=== PATIENT | female | born 1950 | race Two or more races ===

== ENCOUNTER 2018-09-01 11:18 | Inpatient (IN) | payer SELFPAY ==
[~2018-09-01] VITALS: Ht 154.9 cm; Wt 55.6 kg
[2018-09-01] MEDS ORDERED: LISI1TAB11 PO (11:26)
[2018-09-01 11:43] LABS: GLUCOSE,POINT OF CARE 179 MG/DL (70-110)
[2018-09-01 12:43] LABS: BILIRUBIN,URINE NEGATIVE (NEGATIVE); GLUCOSE, URINE (UA) NEGATIVE (NEGATIVE); KETONES,URINE NEGATIVE (NEGATIVE); LEUKOCYTE ESTERASE ,URINE MODERATE (NEGATIVE); NITRATE,URINE NEGATIVE (NEGATIVE); OCCULT BLOOD,URINE NEGATIVE (NEGATIVE); PH,URINE 6.5 (5.0-8.0); PROTEIN,URINE NEGATIVE (NEGATIVE); UROBILINOGEN,URINE 0.2 mg/dL (<=1.0)
[2018-09-01 12:44] LABS: BASOPHILS % (AUTO) 1.1 % (0.0-2.0); EOSINOPHILS % (AUTO) 1.9 % (1.0-6.0); HEMATOCRIT 42.3 % (36-46); HEMOGLOBIN 14.7 g/dL (12.0-16.0); LYMPHOCYTES # (AUTO) 1.5 K/uL (1.0-4.8); LYMPHOCYTES % (AUTO) 25.6 % (22.0-44.0); MEAN CORPUSCULAR HEMOGLOBIN 29.9 pg (26.0-34.0); MEAN CORPUSCULAR HGB CONC 34.9 G/dL (31.0-37.0); MEAN CORPUSCULAR VOLUME 86 fL (80-100); MONOCYTES # (AUTO) 0.5 K/uL (0.1-1.0); NEUTROPHILS # (AUTO) 3.8 K/uL (1.8-7.7); NEUTROPHILS % (AUTO) 63.4 % (40.0-70.0); PLATELET COUNT (AUTO) 226 K/uL (150-450); RED BLOOD CELL COUNT(AUTO) 4.93 MIL/uL (4.00-5.20); RED CELL DISTRIBUTION WIDTH 13.2 % (11.5-14.5)
[2018-09-01 12:52] LABS: ANION GAP 7 mmol/L (8-16); CALCIUM, TOTAL 9.3 mg/dL (8.8-10.5); CARBON DIOXIDE 27 mmol/L (22-29); CHLORIDE 100 mmol/L (98-107); GLOMERULAR FILTR. RATE CALC > 60 mL/min (>60); GLUCOSE,RANDOM 140 mg/dL (70-110); POTASSIUM 4.2 mmol/L (3.5-5.1); SODIUM SERUM 134 mmol/L (136-145); UREA NITROGEN, BLOOD 16 mg/dL (7-18)
[2018-09-01 12:54] LABS: INR 0.9 (0.9-1.1); PROTHROMBIN TIME 9.7 SEC (9.4-11.6)
[2018-09-01 12:57] LABS: APPEARANCE,URINE HAZY (CLEAR)
[2018-09-01 12:58] LABS: BACTERIA,URINE None Seen /HPF (None Seen); RBC,URINE None Seen /HPF (0-2); SQUAMOUS EPITHELIAL CELL,UR Few /LPF (None Seen)
[2018-09-01 13:08] LABS: B-TYPE NATRIURETIC PEPTIDE 35 pg/mL (0-100)
[2018-09-01 13:16] LABS: ALANINE AMINOTRANSFERASE 29 U/L (12-78); ALBUMIN 3.9 g/dL (3.4-5.0); ALKALINE PHOSPHATASE 112 U/L (46-116); ASPARTATE AMINOTRANSFERASE 25 U/L (15-37); BILIRUBIN,TOTAL 0.4 mg/dL (0.1-1.0); CREATINE KINASE, TOTAL ONLY 85 U/L (26-192); TOTAL PROTEIN, SERUM 8.6 g/dL (6.4-8.2)
[2018-09-01] MEDS ORDERED: ACETAMINOPHEN 325 MG TABLET PO PRN (14:00)
[2018-09-01] MEDS ORDERED: 0.9% SODIUM CHLORIDE 10 ML SYRINGE IVP PRN ×2 (14:00→16:15)
[2018-09-01] MEDS ORDERED: ONDANSETRON HCL 4 MG/2 ML VIAL IVP PRN ×2 (14:00→16:15)
[2018-09-01] MEDS ORDERED: ZOLPIDEM TARTRATE 5 MG TABLET PO PRN (16:15)
[2018-09-01] MEDS: HYDROCHLOROTHIAZIDE 25 MG TABLET PO SCH (17:12)
[2018-09-01 18:52] VITALS: BP 128/74
[2018-09-01] MEDS: ASPIRIN 81 MG EC TABLET PO SCH (19:56)
[2018-09-01] MEDS: LISINOPRIL 20 MG TABLET PO SCH (19:56)
[2018-09-01] MEDS: ENOXAPARIN SODIUM 40 MG/0.4 ML PF SYRINGE SQ SCH (19:57)
[2018-09-01 20:13] VITALS: BP 151/79
[2018-09-01] MEDS: DOCUSATE SODIUM 100 MG CAPSULE PO SCH (21:25)
[2018-09-01] MEDS: METOPROLOL TARTRATE 25 MG TABLET PO SCH (21:25)
[2018-09-01 23:41] VITALS: BP 113/53
[2018-09-02 05:08] VITALS: BP 116/57
[2018-09-02 06:14] LABS: BASOPHILS % (AUTO) 1.1 % (0.0-2.0); EOSINOPHILS % (AUTO) 3.7 % (1.0-6.0); HEMOGLOBIN 13.9 g/dL (12.0-16.0); LYMPHOCYTES # (AUTO) 2.1 K/uL (1.0-4.8); MEAN CORPUSCULAR HEMOGLOBIN 29.6 pg (26.0-34.0); MEAN CORPUSCULAR HGB CONC 34.8 G/dL (31.0-37.0); MEAN CORPUSCULAR VOLUME 85 fL (80-100); MONOCYTES # (AUTO) 0.6 K/uL (0.1-1.0); MONOCYTES % (AUTO) 9.5 % (2.0-9.0); NEUTROPHILS # (AUTO) 3.2 K/uL (1.8-7.7); NEUTROPHILS % (AUTO) 51.7 % (40.0-70.0); PLATELET COUNT (AUTO) 222 K/uL (150-450); RED CELL DISTRIBUTION WIDTH 13.3 % (11.5-14.5)
[2018-09-02 06:30] LABS: ALBUMIN 3.3 g/dL (3.4-5.0); BILIRUBIN,TOTAL 0.5 mg/dL (0.1-1.0); CALCIUM, TOTAL 8.9 mg/dL (8.8-10.5); CREATININE 0.94 mg/dL (0.60-1.30); POTASSIUM 4.4 mmol/L (3.5-5.1); TOTAL PROTEIN, SERUM 7.1 g/dL (6.4-8.2)
[2018-09-02 07:52] VITALS: BP 136/57
[2018-09-02] MEDS: ASPIRIN 81 MG EC TABLET PO SCH (08:40)
[2018-09-02] MEDS: HYDROCHLOROTHIAZIDE 25 MG TABLET PO SCH (08:41)
[2018-09-02] MEDS: ENOXAPARIN SODIUM 40 MG/0.4 ML PF SYRINGE SQ SCH (08:41)
[2018-09-02] MEDS: DOCUSATE SODIUM 100 MG CAPSULE PO SCH ×2 (08:45→20:35)
[2018-09-02] MEDS: LISINOPRIL 20 MG TABLET PO SCH (09:00)
[2018-09-02 11:03] LABS: CHOL/HDL RATIO 3.3 (3.9-5.7); THYROID STIMULATING HORMONE 79.06 uIU/mL (0.36-3.74)
[2018-09-02 11:22] VITALS: BP 107/62
[2018-09-02] MEDS ORDERED: IOVERSOL 320 MG/ML 100 ML VIAL ONE (15:01)
[2018-09-02] MEDS ORDERED: SODIUM CHLORIDE 0.9% 100 ML ONE (15:01)
[2018-09-02 15:39] VITALS: BP 122/72
[2018-09-02 20:20] VITALS: BP 112/56
[2018-09-02] MEDS: METOPROLOL TARTRATE 25 MG TABLET PO SCH (20:35)
[2018-09-02 20:39] VITALS: BP 145/71
[2018-09-03 00:26] VITALS: BP 128/58
[2018-09-03 05:25] VITALS: BP 132/90
[2018-09-03 06:43] LABS: ANION GAP 8 mmol/L (8-16); CARBON DIOXIDE 27 mmol/L (22-29); CHLORIDE 97 mmol/L (98-107); CREATININE 0.81 mg/dL (0.60-1.30); GLOMERULAR FILTR. RATE CALC > 60 mL/min (>60); GLUCOSE,RANDOM 155 mg/dL (70-110); POTASSIUM 4.1 mmol/L (3.5-5.1); SODIUM SERUM 132 mmol/L (136-145); UREA NITROGEN, BLOOD 11 mg/dL (7-18)
[2018-09-03] MEDS: ENOXAPARIN SODIUM 40 MG/0.4 ML PF SYRINGE SQ SCH (07:46)
[2018-09-03] MEDS: HYDROCHLOROTHIAZIDE 25 MG TABLET PO SCH (07:46)
[2018-09-03] MEDS: LISINOPRIL 20 MG TABLET PO SCH (07:47)
[2018-09-03] MEDS: ASPIRIN 81 MG EC TABLET PO SCH (07:47)
[2018-09-03] MEDS: DOCUSATE SODIUM 100 MG CAPSULE PO SCH (07:47)
[2018-09-03 07:55] VITALS: BP 119/65
[2018-09-03 07:56] LABS: BASOPHILS % (AUTO) 0.6 % (0.0-2.0); EOSINOPHILS % (AUTO) 1.5 % (1.0-6.0); HEMATOCRIT 38.4 % (36-46); HEMOGLOBIN 13.6 g/dL (12.0-16.0); LYMPHOCYTES # (AUTO) 1.6 K/uL (1.0-4.8); LYMPHOCYTES % (AUTO) 16.8 % (22.0-44.0); MEAN CORPUSCULAR HGB CONC 35.5 G/dL (31.0-37.0); MEAN CORPUSCULAR VOLUME 85 fL (80-100); MONOCYTES # (AUTO) 0.7 K/uL (0.1-1.0); MONOCYTES % (AUTO) 7.8 % (2.0-9.0); NEUTROPHILS % (AUTO) 73.3 % (40.0-70.0); PLATELET COUNT (AUTO) 223 K/uL (150-450); RED BLOOD CELL COUNT(AUTO) 4.54 MIL/uL (4.00-5.20); RED CELL DISTRIBUTION WIDTH 13.4 % (11.5-14.5)
[2018-09-03] MEDS: ACETAMINOPHEN 325 MG TABLET PO PRN ×2 (08:58→15:21)
[2018-09-03 11:44] VITALS: BP 123/71
[2018-09-03] MEDS ORDERED: ASPI81 PO (15:02)
[2018-09-03] MEDS ORDERED: METO25 PO (15:03)
[2018-09-03 15:29] VITALS: BP 111/66
== END 2018-09-03 15:40 | disposition home or self-care (01) | DRG 311 ==
LOC: EDBD 11:23 → EMS 11:23 → 5S 15:35 → UNDOADMIN 15:35 → 5S 15:39
PROVIDERS: ADMIT Internal Medicine; ATTEND Internal Medicine
DX: I20.8 Other forms of angina pectoris (principal); E23.0 Hypopituitarism; I10 Essential (primary) hypertension; R20.0 Anesthesia of skin
CPT/HCPCS: 70450; 71260; 72193; 74160; 83036; 84443; 87086; 90686; 92610; 93005; 93306; 97161; 97165; 97535; G0378; J1650; J7050